=== PATIENT | male | born 1995 | race American Indian/Alaskan Native ===

== ENCOUNTER 2021-10-25 07:28 | Emergency (ER) | payer SELFPAY ==
[2021-10-25 08:31] LABS: Bacteria,Urine 1+ /HPF (Negative); Mucus,Urine FEW /HPF; WBC,Urine < 1.0 /HPF (0.0-6.0)
[2021-10-25 08:48] LABS: Color,Urine Amber (Yellow)
[2021-10-25 08:55] LABS: Bilirubin,Urine Negative (Negative); Blood,Urine Negative (Negative); Protein,Urine <15 mg/dL mg/dL (Negative)
[2021-10-25 11:18] VITALS: BP 127/71
--- NOTE | 2021-10-25 11:30 | Emergency Department Report ---
ED General Adult HPI - General Chief complaint: Skin Rash Stated complaint: RASH ON CHEST AND BACK, UTI CHECK Source: patient Mode of arrival: Ambulatory Limitations: No Limitations - History of Present Illness Initial comments: Patient is a 26-year-old -[place] male with no past medical history presents to the ED with complaint of persistent itchy dry scaly erythematous maculopapular rashes on the chest wall and on his back for the last 2 months. Patient states that he previously experienced malaise symptoms over 4 years ago and was treated as a fungal infection. Patient now states that this symptoms have been persistent and appear to be spreading all over his back and his chest wall. Patient also complains of chronic urinary frequency and urgency for which she has previously been extensively worked up given by urologist but no etiology has been identified. Patient denies fever, chills, nausea and vomiting, dizziness, syncope, chest pain or shortness of breath, cough, sore throat, diarrhea, dysuria, penile discharge, testicular pain, hematuria, low back pain, headache or swollen lips and tongue. MD Complaint: Diffuse trunk dry scaly rash; chronic urinary frequency and urgency -: Gradual, month(s) (2) Location: chest, back Radiation: non-radiation Severity scale (0 -10): 0 Consistency: constant Improves with: none Worsens with: none Associated Symptoms: denies other symptoms, rash (Itchy dry scaly rashes on the trunk and chest wall). denies: confusion, chest pain, cough, diaphoresis, fever/chills, headaches, loss of appetite, malaise, nausea/vomiting, shortness of breath, syncope, weakness Treatments Prior to Arrival: none - Related Data Previous Rx's Medication Instructions Recorded Last Taken Type Fluconazole [Diflucan TAB] 200 mg PO QDAY #4 tablet 10/25/21 Unknown Rx Oxybutynin Xl [Ditropan Xl] 5 mg PO DAILY #30 tab 10/25/21 Unknown Rx Allergies Allergy/AdvReac Type Severity Reaction Status Date / Time No Known Allergies Allergy Verified 10/25/21 11:19 ED Review of Systems ROS: Stated complaint: RASH ON CHEST AND BACK, UTI CHECK Other details as noted in HPI Constitutional: denies: chills, fever Eyes: denies: eye pain, eye discharge, vision change ENT: denies: ear pain, throat pain Respiratory: denies: cough, shortness of breath, wheezing Cardiovascular: denies: chest pain, palpitations Endocrine: no symptoms reported Gastrointestinal: denies: abdominal pain, nausea, diarrhea Genitourinary: urgency, frequency. denies: dysuria Musculoskeletal: denies: back pain, joint swelling, arthralgia Skin: rash (Dry itchy scaly rashes on the chest wall and trunk), change in color, pruritus. denies: lesions Neurological: denies: headache, weakness, paresthesias Psychiatric: denies: anxiety, depression Hematological/Lymphatic: denies: easy bleeding, easy bruising ED Past Medical Hx - Medications Home Medications: Home Medications Medication Instructions Recorded Confirmed Last Taken Type Fluconazole [Diflucan TAB] 200 mg PO QDAY #4 tablet 10/25/21 Unknown Rx Oxybutynin Xl [Ditropan Xl] 5 mg PO DAILY #30 tab 10/25/21 Unknown Rx ED Physical Exam - General Limitations: No Limitations General appearance: alert, in no apparent distress - Head Head exam: Present: atraumatic, normocephalic, normal inspection - Eye Eye exam: Present: normal appearance, PERRL, EOMI Pupils: Present: normal accommodation - ENT ENT exam: Present: normal exam, normal orophraynx, mucous membranes moist, TM's normal bilaterally, normal external ear exam - Neck Neck exam: Present: normal inspection, full ROM. Absent: tenderness - Respiratory Respiratory exam: Present: normal lung sounds bilaterally. Absent: respiratory distress, wheezes, rales, rhonchi, chest wall tenderness, accessory muscle use, decreased breath sounds, prolonged expiratory - Cardiovascular Cardiovascular Exam: Present: regular rate, normal rhythm, normal heart sounds. Absent: systolic murmur, diastolic murmur, rubs, gallop - GI/Abdominal GI/Abdominal exam: Present: soft, normal bowel sounds. Absent: tenderness, guarding - Extremities Exam Extremities exam: Present: normal inspection, full ROM, normal capillary refill - Back Exam Back exam: Present: normal inspection, full ROM. Absent: tenderness, CVA tenderness (R), CVA tenderness (L), muscle spasm, paraspinal tenderness, vertebral tenderness - Neurological Exam Neurological exam: Present: alert, oriented X3, CN II-XII intact, normal gait, reflexes normal - Psychiatric Psychiatric exam: Present: normal affect, normal mood - Skin Skin exam: Present: warm, dry, intact, normal color, rash (Dry scaly mild erythematous rashes on the chest wall and on the back), erythema ED Course Vital Signs 10/25/21 10/25/21 07:36 11:17 Temperature 98.4 F Pulse Rate 74 67 Respiratory 16 16 Rate Blood Pressure 125/81 127/71 [Right] O2 Sat by Pulse 96 99 Oximetry ED Medical Decision Making - Medical Decision Making This is a 26-year-old -[place] male with no past medical history presents to the ED with complaint of persistent itchy dry scaly erythematous maculopapular rashes on the chest wall and on his back for the last 2 months. Patient states that he previously experienced malaise symptoms over 4 years ago and was treated as a fungal infection. Patient now states that this symptoms have been persistent and appear to be spreading all over his back and his chest wall. Patient also complains of chronic urinary frequency and urgency for which she has previously been extensively worked up given by urologist but no etiology has been identified. In the ED, patient is alert and oriented x3 and is not in any distress. Patient is hemodynamically stable. Urinalysis is unremarkable. Patient will discharge home on medications based on the history and physical exam findings. Patient urinary frequency and urgency is likely due to bladder spasms. Patient was advised to follow-up with his primary care physician in 7 to 10 days for reevaluation or return to the ED immediately if symptoms get worse. - Differential Diagnosis Tinea corporis; irritant dermatitis; Malassezia furfur, vitiligo Critical care attestation.: If time is entered above; I have spent that time in minutes in the direct care of this critically ill patient, excluding procedure time. ED Disposition Clinical Impression: Tinea versicolor due to Malassezia furfur, Itching with irritation, Bladder spasm Disposition: HOME / SELF CARE / HOMELESS Is pt being admited?: No Does the pt Need Aspirin: No Condition: Stable Instructions: Tinea Versicolor, [id number], Pruritus, Overactive Bladder, Adult Additional Instructions: Take medication as advised, drink plenty of fluids and follow-up with your primary care physician in 7 to 10 days for reevaluation. Return to the ED immediately if symptoms get worse. Prescriptions: Fluconazole [Diflucan TAB] 200 mg PO QDAY #4 tablet Oxybutynin Xl [Ditropan Xl] 5 mg PO DAILY #30 tab Referrals: EMILY YANEZ MD [Staff Physician] - 3-5 Days [facility] [Provider Group] - 7-10 days Time of Disposition: 11:35 Print Language: IRISH
== END 2021-10-25 12:41 | disposition home or self-care (01) ==
LOC: ED 07:28
DX: B36.0 Pityriasis versicolor (principal); L29.9 Pruritus, unspecified; N32.89 Other specified disorders of bladder
CPT/HCPCS: 81001; 99283